=== PATIENT | male | born 1980 | race Caucasian/White ===

== ENCOUNTER → 2020-02-17 | Outpatient (CLI) | payer BC | END | disposition home or self-care (01) | LOC: LABWHC1 10:39 | PROVIDERS: ATTEND Family Medicine | DX: R50.9 Fever, unspecified (principal); R06.02 Shortness of breath | CPT/HCPCS: U0003; C9803 ==

== ENCOUNTER 2021-04-12 08:09 | Emergency (ER) | payer OTHER ==
[2021-04-12 08:16] VITALS: RESP 18
[2021-04-12] MEDS ORDERED: methylPREDNISolone SOD SUCCI 125 MG/2 ML VIAL IM STA (09:19)
[2021-04-12] MEDS ORDERED: KETOROLAC 15 MG/ML 1 ML VIAL IM STA (09:19)
--- NOTE | 2021-04-12 09:32 | ED ---
General Adult HPI - General Chief complaint: Extremity Problem,Nontraumatic Stated complaint: swelling Time Seen by Provider: 04/12/21 08:39 Source: patient, RN notes reviewed Mode of arrival: ambulatory Limitations: no limitations - History of Present Illness Initial comments: 40-year-old male with a past medical history of hypertension presents to the emergency room for several complaints. Patient seems to have a main complaint of swelling. States his feet started swelling a few days ago. It then progressed to his hands and arms as well as his lips. No SOB or CHENTE. Patient states this happened before and he needed steroids and it seemed to help. Patient also states he has had one of these migraines on and off for the past few days. States this feels like a normal migraine for him. He also has a sore throat. His daughter had coronavirus last week. No fevers. Patient has no other complaints at this time including shortness of breath, chest pain, abdominal pain, nausea or vomiting, headache, or visual changes. - Related Data Home Medications Medication Instructions Recorded Confirmed amLODIPine [Norvasc] 5 mg PO DAILY 08/18/19 04/12/21 Aspirin/Acetaminophen/Caffeine 2 tab PO DAILY PRN 04/12/21 04/12/21 [Excedrin Migraine Caplet] Previous Rx's Medication Instructions Recorded predniSONE 50 mg PO DAILY #4 tablet 04/12/21 Allergies Allergy/AdvReac Type Severity Reaction Status Date / Time No Known Allergies Allergy Verified 04/12/21 12:15 Review of Systems ROS Statement: Those systems with pertinent positive or pertinent negative responses have been documented in the HPI. ROS Other: All systems not noted in ROS Statement are negative. Past Medical History Past Medical History: Hypertension History of Any Multi-Drug Resistant Organisms: None Reported Past Surgical History: Orthopedic Surgery Additional Past Surgical History / Comment(s): rotator cuff repair Past Psychological History: No Psychological Hx Reported Smoking Status: Current every day smoker Past Alcohol Use History: None Reported Past Drug Use History: Marijuana General Exam - General Exam Comments Initial Comments: Patient does have mild edema of the hands as well as the lips. No swelling of the oropharynx. Uvula nonedematous. Limitations: no limitations General appearance: alert, in no apparent distress Head exam: Present: atraumatic Eye exam: Present: normal appearance, PERRL, EOMI. Absent: scleral icterus, conjunctival injection ENT exam: Present: normal exam, normal oropharynx (Uvula midline, no edema of uvula), mucous membranes moist, normal external ear exam Neck exam: Present: normal inspection, full ROM. Absent: tenderness Respiratory exam: Present: normal lung sounds bilaterally. Absent: respiratory distress, wheezes Cardiovascular Exam: Present: regular rate, normal rhythm, normal heart sounds GI/Abdominal exam: Present: soft, normal bowel sounds. Absent: distended, tenderness Neurological exam: Present: alert Course Vital Signs 04/12/21 08:10 Temperature 97.0 F L Pulse Rate 68 Respiratory 18 Rate Blood Pressure 142/82 O2 Sat by Pulse 99 Oximetry Medical Decision Making - Medical Decision Making vitals are stable. Patient is well appearing. No respiratory distress. Patient was given Toradol and headache improved, actually resolved. He was given a steroid for his swelling which has helped in the past. He does not take any javier inhibitors. Coronavirus was positive on patient. I discussed risks versus benefits of antibodies. At this time he prefers not to have antibodies given. He is aware he needs to return within 10 days of symptom onset if he would like these and that the earlier is better for efficacy. He will return for any other worsening symptoms. - Lab Data Lab Results 04/12/21 04/12/21 Range/Units 10:05 10:05 Coronavirus (PCR) Detected A (Not Detectd) Group A Strep Rapid Negative (Negative) Disposition Clinical Impression: Headache, COVID Disposition: HOME SELF-CARE Condition: Good Instructions (If sedation given, give patient instructions): Coronavirus Disease 2019 (COVID-19) Additional Instructions: Take vitamins c, d, zinc. Take motrin and tylenol for pain. Please follow-up with your primary care physician in 1 to 2 days. Please return to the Emergency Department if symptoms worsen or do not improve. Prescriptions: predniSONE 50 mg PO DAILY #4 tablet Is patient prescribed a controlled substance at d/c from ED?: No Referrals: Ryland Pineda MD [Primary Care Provider] - 1-2 days Time of Disposition: 12:41
[2021-04-12 12:48] VITALS: BP 161/92; PULSE 69; TEMP 97.8
== END 2021-04-12 12:54 | disposition home or self-care (01) ==
LOC: EC 08:09
DX: U07.1 COVID-19 (principal); I10 Essential (primary) hypertension; F17.200 Nicotine dependence, unspecified, uncomplicated; F12.90 Cannabis use, unspecified, uncomplicated; Z79.82 Long term (current) use of aspirin
CPT/HCPCS: 99284; 96372 ×2; 87081; 87430; 87635; J2930; J1885

== ENCOUNTER → 2021-07-04 | Outpatient (CLI) | payer OTHER ==
--- NOTE | 2021-07-05 03:23 | MR ---
EXAMINATION TYPE: MR thoracic spine wo con DATE OF EXAM: 07/04/2021 COMPARISON: None HISTORY: Mid back pain for 5 weeks due to work related lifting injury. Multiplanar multiecho imaging of the thoracic spine without contrast. T10 and T11 and T12 are not wel l seen on the sagittal images. There is some artifact. The thoracic vertebra have normal alignment. T here is no evidence of compression fracture. There is no thoracic paraspinal mass. I see no bony dest ructive process. There is no evidence of thoracic spinal stenosis. Thoracic spinal cord has normal si gnal pattern. There is no sign of edema. Cervical spine appears intact. There is a posterior mild dis c herniation at C6-7 towards the right side with some neural foraminal impingement. IMPRESSION: C6-7 mild posterior right-sided disc herniation and neural foraminal impingement. No fracture seen. No significant abnormality of the thoracic spine.
== END | disposition home or self-care (01) ==
LOC: RADMRIMAIN 19:33
PROVIDERS: ATTEND Family Medicine
DX: M50.123 Cervical disc disorder at C6-C7 level with radiculopathy (principal)
CPT/HCPCS: 72146

== ENCOUNTER → 2021-10-26 | Outpatient (CLI) | payer OTHER ==
--- NOTE | 2021-10-27 06:07 | MR ---
EXAMINATION TYPE: MR lumbar spine wo con DATE OF EXAM: 10/26/2021 COMPARISON: NONE HISTORY: Low back pain that radiates down right leg, bilateral leg numbness TECHNIQUE: Multiplanar, multisequence imaging of the lumbar spine is performed without IV contrast. FINDINGS: Sagittal images of the lumbar spine show vertebral body height to appear satisfactory. Subt le grade 1 retrolisthesis L5 on S1. Disc desiccation with mild disc space narrowing L5-S1 level. Mild disc space narrowing L1-L2 level. The conus medullaris is normal in position and signal ending infe rior L1 level. The bone marrow signal intensity is within normal limits. Axial images show T12-L1 through the L4-L5 levels to appear within normal limits. Axial images at L5-S1 level shows spondylolisthesis with broad based right paracentral/foraminal disc protrusion mildly effacing anterolateral thecal sac, there is effacement of the lateral recess and t he central right S1 nerve axial image 1 and sagittal image 11. Bilateral neural foramina are patent. Paraspinal muscle bulk is preserved. IMPRESSION: Focal broad-based disc herniation L5-S1 level appears to efface the central right S1 nerv e.
== END | disposition home or self-care (01) ==
LOC: RADMRIMAIN 19:30
PROVIDERS: ATTEND Physical Medicine & Rehabilitation
DX: M51.17 Intervertebral disc disorders with radiculopathy, lumbosacral region (principal)
CPT/HCPCS: 72148

== ENCOUNTER 2022-03-19 14:28 | Emergency (ER) | payer OTHER ==
[2022-03-19 14:38] VITALS: BP 154/91; PULSE 77; RESP 20; TEMP 98.2
[2022-03-19] MEDS ORDERED: FAMOTIDINE 20 MG/2 ML VIAL IV STA (14:53)
[2022-03-19] MEDS ORDERED: diphenhydrAMINE 50 MG/ML 1 ML VIAL IVP STA (14:53)
[2022-03-19] MEDS ORDERED: SODIUM CHLORIDE 0.9% 1,000 ML IV ONE (14:53)
[2022-03-19] MEDS ORDERED: methylPREDNISolone SOD SUCCI 125 MG/2 ML VIAL IV STA (14:53)
--- NOTE | 2022-03-19 15:02 | ED ---
Allergic Reaction HPI - General Chief complaint: Allergic Reaction Stated complaint: Wasp sting to LT eye Time Seen by Provider: 03/19/22 14:37 Source: patient, RN notes reviewed Mode of arrival: ambulatory Limitations: no limitations - History of Present Illness Initial Comments: 41-year-old male presents emergency Department chief complaint ALLERGIC re action. Patient states he was stung in his (over region states that he took some Benadryl around 11 states she's had some swelling. Patient states that swelling is primarily around his eyes, side of his face but denies any difficulty swallowing, breathing no shortness of breath he states he swells quite frequently when he has bee sting. Patient denies any other associated complaints. - Related Data Home Medications Medication Instructions Recorded Confirmed amLODIPine [Norvasc] 5 mg PO DAILY 08/18/19 04/12/21 Aspirin/Acetaminophen/Caffeine 2 tab PO DAILY PRN 04/12/21 04/12/21 [Excedrin Migraine Caplet] Previous Rx's Medication Instructions Recorded predniSONE 50 mg PO DAILY #4 tablet 04/12/21 EPINEPHrine (Auto Inject) [Epipen] 0.3 mg IM ONCE PRN #1 pack 03/19/22 Famotidine [Pepcid] 20 mg PO BID #28 tablet 03/19/22 diphenhydrAMINE [Benadryl] 50 mg PO QID PRN #20 capsule 03/19/22 predniSONE 50 mg PO DAILY #5 tab 03/19/22 Allergies Allergy/AdvReac Type Severity Reaction Status Date / Time No Known Allergies Allergy Verified 03/19/22 14:37 Review of Systems ROS Statement: Those systems with pertinent positive or pertinent negative responses have been documented in the HPI. ROS Other: All systems not noted in ROS Statement are negative. Past Medical History Past Medical History: Hypertension History of Any Multi-Drug Resistant Organisms: None Reported Past Surgical History: Orthopedic Surgery Additional Past Surgical History / Comment(s): rotator cuff repair Past Psychological History: No Psychological Hx Reported Smoking Status: Current every day smoker Past Alcohol Use History: None Reported Past Drug Use History: Marijuana General Exam Limitations: no limitations General appearance: alert, in no apparent distress Head exam: Present: atraumatic, normocephalic, normal inspection Eye exam: Present: normal appearance, PERRL, EOMI, periorbital swelling (Bilateral). Absent: scleral icterus, conjunctival injection ENT exam: Present: normal exam, normal oropharynx, mucous membranes moist Neck exam: Present: normal inspection, full ROM. Absent: tenderness, meningismus, lymphadenopathy Respiratory exam: Present: normal lung sounds bilaterally. Absent: respiratory distress, wheezes, rales, rhonchi, stridor Cardiovascular Exam: Present: regular rate, normal rhythm, normal heart sounds. Absent: systolic murmur, diastolic murmur, rubs, gallop, clicks Course Vital Signs 03/19/22 14:36 Temperature 98.2 F Pulse Rate 77 Respiratory 20 Rate Blood Pressure 154/91 O2 Sat by Pulse 99 Oximetry Medical Decision Making - Medical Decision Making 40 of his eyes, sinus face. Patient symptoms have been present for several hours with no worsening symptoms did have some mild improvement after IV meds. Patient discharged with prednisone, Pepcid, Benadryl he'll be given an EpiPen. Return parameters were discussed.-year-old male presented for bee sting, swelling Disposition Clinical Impression: Allergic reaction to insect sting Disposition: HOME SELF-CARE Condition: Stable Instructions (If sedation given, give patient instructions): Anaphylaxis (ED) Additional Instructions: Please return to the Emergency Department if symptoms worsen or any other concerns. Prescriptions: diphenhydrAMINE [Benadryl] 50 mg PO QID PRN #20 capsule PRN Reason: Allergic Reaction EPINEPHrine (Auto Inject) [Epipen] 0.3 mg IM ONCE PRN #1 pack PRN Reason: Anaphylaxis Famotidine [Pepcid] 20 mg PO BID #28 tablet predniSONE 50 mg PO DAILY #5 tab Is patient prescribed a controlled substance at d/c from ED?: No Referrals: Ryland Pineda MD [Primary Care Provider] - 1-2 days Time of Disposition: 16:43
[2022-03-19] MEDS ORDERED: KETOROLAC 15 MG/ML 1 ML VIAL IVP STA (15:53)
== END 2022-03-19 16:52 | disposition home or self-care (01) ==
LOC: EC 14:28
DX: T63.481A Toxic effect of venom of other arthropod, accidental (unintentional), initial encounter (principal); I10 Essential (primary) hypertension; F17.200 Nicotine dependence, unspecified, uncomplicated
CPT/HCPCS: 99283; 96374; 96375; 96361; J1200; J2930; J1885

== ENCOUNTER → 2022-05-31 | Outpatient (CLI) | payer OTHER, BC ==
[2022-05-31 12:25] LABS: Appearance,Urine Clear (Clear); Bilirubin,Urine Negative (Negative); Blood,Urine Negative (Negative); Color,Urine Yellow; Glucose,Urine (UA) Negative (Negative); Ketones,Urine Negative (Negative); Leukocyte Esterase,Urine Negative (Negative); Nitrite,Urine Negative (Negative); PH, Urine 5.5 (5.0-8.0); Protein,Urine Trace (Negative); Specific Gravity,Urine 1.028 (1.001-1.035); Urobilinogen,Urine <2.0 mg/dL (<2.0)
--- NOTE | 2022-05-31 12:46 | XR ---
EXAMINATION TYPE: XR chest 2V DATE OF EXAM: 05/31/2022 COMPARISON: NONE TECHNIQUE: PA and lateral views submitted. HISTORY: Presurgical testing FINDINGS: The lungs are clear and there is no pneumothorax, pleural effusion, or focal pneumonia. Heart size normal. No overt failure. Arthropathy of the right AC joint. IMPRESSION: 1. No acute process.
[2022-05-31 19:43] LABS: INR 0.86 (0.90-1.11); Prothrombin Time 9.8 sec (9.9-11.9)
[2022-05-31 20:13] LABS: Basophils # (A) 0.08 X 10*3/uL (0.00-0.10); Eosinophils # (A) 0.24 X 10*3/uL (0.04-0.35); HCT 49.1 % (39.6-50.0); HGB 16.8 g/dL (13.0-17.0); Immature Grans, Automated 0.6 %; Lymphocytes # (A) 2.87 X 10*3/uL (0.90-5.00); Lymphocytes % (A) 35.7 %; MCH 30.7 pg (27.0-32.0); MCHC 34.2 g/dL (32.0-37.0); MCV 89.6 fL (80.0-97.0); Mean Platelet Volume 10.7 fL (9.5-12.2); Monocytes # (A) 0.46 X 10*3/uL (0.20-1.00); Monocytes % (A) 5.7 %; NRBC Per 100 WBC 0 /100 WBCS (0.0-0.0); Neutrophils # (A) 4.34 X 10*3/uL (1.80-7.70); Platelet Count 273 X 10*3/uL (140-440); RBC 5.48 X 10*6/uL (4.40-5.60); WBC 8.04 X 10*3/uL (4.50-10.00)
[2022-05-31 21:02] LABS: ALT 22 U/L (10-49); AST 12 U/L (14-35); African American GFR (CKD) 131.7 (60.0-200.0); Albumin 4.3 g/dL (3.8-4.9); Albumin/Globulin Ratio 1.68 (1.60-3.17); Alkaline Phosphatase 68 U/L (41-126); BUN/Creat Ratio 18.49 Ratio (12.00-20.00); Blood Urea Nitrogen 14.2 mg/dL (9.0-27.0); Calcium 9.6 mg/dL (8.7-10.3); Carbon Dioxide 22.1 mmol/L (20.0-27.5); Chloride 102 mmol/L (96-109); Globulin 2.6 g/dL (1.6-3.3); Glucose 149 mg/dL (70-110); Non-African American GFR(CKD) 113.6 (60.0-200.0); Potassium 4.3 mmol/L (3.5-5.5); Sodium 138 mmol/L (135-145); Total Bilirubin <0.15 mg/dL (0.30-1.20); Total Protein 6.8 g/dL (6.2-8.2)
== END | disposition home or self-care (01) ==
LOC: RADXRMAIN 11:04
PROVIDERS: ATTEND Specialist
DX: Z01.818 Encounter for other preprocedural examination (principal); M51.26 Other intervertebral disc displacement, lumbar region
CPT/HCPCS: 71046; 80053; 81003; 83036; 85025; 85610

== ENCOUNTER → 2022-09-26 | Outpatient (CLI) | payer BC ==
--- NOTE | 2022-09-26 15:49 | MR ---
EXAMINATION TYPE: MR brain wo/w con DATE OF EXAM: 09/26/2022 COMPARISON: None HISTORY: Blurry vision with spots TECHNIQUE: Multiplanar, multisequence images of the brain and brainstem is performed without and with IV contras t, utilizing 15 mL intravenous Gadavist . FINDINGS: Diffusion weighted images demonstrate no evidence of a recent infarct or other diffusion ab normality. There is no extra-axial fluid collection. A few nonenhancing periventricular and subcorti donn white matter hyperintense foci identified. The ventricular system and cisternal spaces are normal in size and appearance. The brain volume is age appropriate. Midline structures demonstrate normal morphology. The craniocervical junction appears within normal limits. Post contrast images demonstrate no abnormal enhancement. The dural venous sinuses appear pa tent. The visualized sinuses are clear and the globes are intact. IMPRESSION: 1. No evidence for acute/subacute ischemia or enhancing intracranial mass. Next and 2. Few nonspecific white matter changes, likely related to small vessel ischemic disease. Demyelinati ng process is not entirely excluded however there is no enhancement.
== END | disposition home or self-care (01) ==
LOC: RADMRIMAIN 14:08
PROVIDERS: ATTEND Physician Assistant
DX: H53.9 Unspecified visual disturbance (principal); R90.82 White matter disease, unspecified
CPT/HCPCS: 70553; A9585

== ENCOUNTER → 2022-11-08 | Outpatient (CLI) | payer BC ==
--- NOTE | 2022-11-08 15:53 | US ---
EXAMINATION TYPE: US carotid duplex BILAT DATE OF EXAM: 11/08/2022 COMPARISON: NONE CLINICAL INDICATION: Male, 41 years old with history of H53.9 VISUAL CHANGES; Visual changes. TECHNIQUE: Carotid duplex ultrasound examination. Indirect Doppler criteria was utilized. FINDINGS: EXAM MEASUREMENTS: RIGHT: Peak Systolic Velocity (PSV) cm/sec ----- Right CCA: 58 ----- Right ICA: 72.5 ----- Right ECA: 194.8 ICA/CCA ratio: 1.3 RIGHT: End Diastole cm/sec ----- Right CCA: 11.1 ----- Right ICA: 17.6 ----- Right ECA: 10.9 LEFT: Peak Systolic Velocity (PSV) cm/sec ----- Left CCA: 125.2 ----- Left ICA: 88.1 ----- Left ECA: 82.2 ICA/CCA ratio: 0.7 LEFT: End Diastole cm/sec ----- Left CCA: 27.6 ----- Left ICA: 20.7 ----- Left ECA: 0 VERTEBRALS (direction of flow): Right Vertebral: Antegrade Left Vertebral: Antegrade Rhythm: Normal INSOLE STIFFENER NOTES: No significant stenosis seen There is some loss of the elevation within the left common carotid artery. There is elevation of the right external carotid artery velocity suggesting underlying stenosis. Internal carotid artery veloci ties however remain normal. Some atheromatous plaquing and intimal thickening is present IMPRESSION: Moderate atheromatous plaquing without significant flow-limiting stenosis to the internal carotid art eries Criteria for Assigning % of Stenosis / Diameter reduction (Estimation based on the indirect measurements of the internal carotid artery velocities (ICA PSV). 1. Normal (no stenosis)=ICA PSV < 125 cm/s: ratio < 2.0: ICA EDV<40 cm/s. 2. Less than 50% stenosis=ICA PSV < 125 cm/s: ratio < 2.0: ICA EDV<40 cm/s. 3. 50 to 69% stenosis=ICA PSV of 125 to 230 cm/s: ration 2.0 ? 4.0: ICA EDV 40-100 cm/s. 4. Greater than 70% stenosis to near occlusion= ICA PSV > 230 cm/s: ratio > 4.0: ICA EDV > 100 cm/s. 5. Near occlusion= ICA PSV velocities may be low or undetectable: variable ratio and ICA EDV. 6. Total occlusion=unable to detect flow.
== END | disposition home or self-care (01) ==
LOC: RADUSWWP 10:45
PROVIDERS: ATTEND Pediatrics
DX: I65.23 Occlusion and stenosis of bilateral carotid arteries (principal); H53.9 Unspecified visual disturbance
CPT/HCPCS: 93880

== ENCOUNTER 2023-02-11 15:06 | Emergency (ER) | payer BC ==
[2023-02-11] MEDS ORDERED: LIDOCAINE 1% INJ 10MG/ML (20 ML MDV) SQ ONE (17:00)
--- NOTE | 2023-02-11 17:03 | ED ---
General Adult HPI - General Chief complaint: Extremity Injury, Upper Stated complaint: Right finger infection Time Seen by Provider: 02/11/23 16:38 Source: patient, RN notes reviewed Mode of arrival: ambulatory Limitations: no limitations - History of Present Illness Initial comments: 42-year-old male presents to the emergency department chief complaint of right 4th finger swelling x 2 days. He states that is next to his fingernail and has not had any drainage. He admits to chills. Denies any significant past medical history. Denies any medication allergies. - Related Data Home Medications Medication Instructions Recorded Confirmed amLODIPine [Norvasc] 5 mg PO DAILY 08/18/19 04/12/21 Aspirin/Acetaminophen/Caffeine 2 tab PO DAILY PRN 04/12/21 04/12/21 [Excedrin Migraine Caplet] Previous Rx's Medication Instructions Recorded predniSONE 50 mg PO DAILY #4 tablet 04/12/21 EPINEPHrine (Auto Inject) [Epipen] 0.3 mg IM ONCE PRN #1 pack 03/19/22 Famotidine [Pepcid] 20 mg PO BID #28 tablet 03/19/22 diphenhydrAMINE [Benadryl] 50 mg PO QID PRN #20 capsule 03/19/22 predniSONE 50 mg PO DAILY #5 tab 03/19/22 Amoxic-Pot Clav 875-125Mg 1 tab PO Q12HR #14 tab 02/11/23 [Augmentin 875-125] Allergies Allergy/AdvReac Type Severity Reaction Status Date / Time No Known Allergies Allergy Verified 02/11/23 15:11 Review of Systems ROS Statement: Those systems with pertinent positive or pertinent negative responses have been documented in the HPI. ROS Other: All systems not noted in ROS Statement are negative. Past Medical History Past Medical History: Diabetes Mellitus, Hypertension History of Any Multi-Drug Resistant Organisms: None Reported Past Surgical History: Orthopedic Surgery Additional Past Surgical History / Comment(s): rotator cuff repair Past Psychological History: No Psychological Hx Reported Smoking Status: Current every day smoker Past Alcohol Use History: None Reported Past Drug Use History: Marijuana General Exam Limitations: no limitations General appearance: alert, in no apparent distress Head exam: Present: atraumatic, normocephalic, normal inspection Eye exam: Present: normal appearance, PERRL, EOMI. Absent: scleral icterus, conjunctival injection, periorbital swelling ENT exam: Present: normal exam, mucous membranes moist Neck exam: Present: normal inspection. Absent: tenderness, meningismus, lymphadenopathy Respiratory exam: Present: normal lung sounds bilaterally. Absent: respiratory distress, wheezes, rales, rhonchi, stridor Cardiovascular Exam: Present: regular rate, normal rhythm, normal heart sounds. Absent: systolic murmur, diastolic murmur, rubs, gallop, clicks GI/Abdominal exam: Present: soft, normal bowel sounds. Absent: distended, tenderness, guarding, rebound, rigid Extremities exam: Present: full ROM, normal capillary refill, other (radial pulses 2+, paronychia to right 4th digit) Neurological exam: Present: alert, oriented X3 Psychiatric exam: Present: normal affect, normal mood Skin exam: Present: warm, dry, intact, other (paronychia to right 4th finger) Course Vital Signs 02/11/23 02/11/23 15:09 18:19 Temperature 98.3 F 100 F H Pulse Rate 92 87 Respiratory 20 18 Rate Blood Pressure 162/93 144/87 O2 Sat by Pulse 99 97 Oximetry Medical Decision Making - Medical Decision Making Was pt. sent in by a medical professional or institution (, PA, [employer], urgent care, hospital, or [facility]...) When possible be specific @ -No Did you speak to anyone other than the patient for history (EMS, parent, family, police, friend...)? What history was obtained from this source @ -No Did you review nursing and triage notes (agree or disagree)? Why? @ -I reviewed and agree with nursing and triage notes Were old charts reviewed (outside hosp., previous admission, EMS record, old EK G, old radiological studies, urgent care reports/EKG's, [facility] records)? Report findings @ -No old charts were reviewed Differential Diagnosis (chest pain, altered mental status, abdominal pain women, abdominal pain men, vaginal bleeding, weakness, fever, dyspnea, syncope, headache, dizziness, GI bleed, back pain, seizure, CVA, palpatations, mental health, musculoskeletal)? @ -felon, paronychia, cellulitis, this list is not all inclusive EKG interpreted by me (3pts min.). @ -none X-rays interpreted by me (1pt min.). @ -None done CT interpreted by me (1pt min.). @ -None done U/S interpreted by me (1pt. min.). @ -None done What testing was considered but not performed or refused? (CT, X-rays, U/S, labs)? Why? @ -None What meds were considered but not given or refused? Why? @ -None Did you discuss the management of the patient with other professionals (professionals i.e. Dr., PA, [employer], lab, RT, psych nurse, renal social worker, assembly mechanic, teacher, court registry officer, director case management)? Give summary @ -No Was smoking cessation discussed for >3mins.? @ -No Was critical care preformed (if so, how long)? @ -No Were there social determinants of health that impacted care today? How? (Homelessness, low income, unemployed, alcoholism, drug addiction, transportation, low edu. Level, literacy, decrease access to med. care, snf, rehab)? @ -No Was there de-escalation of care discussed even if they declined (Discuss DNR or withdrawal of care, Hospice)? DNR status @ -No What co-morbidities impacted this encounter? (DM, HTN, Smoking, COPD, CAD, Cancer, CVA, ARF, Chemo, Hep., AIDS, mental health diagnosis, sleep apnea, morbid obesity)? @ -None Was patient admitted / discharged? Hospital course, mention meds given and route, prescriptions, significant lab abnormalities, going to OR and other pertinent info. @ -discharged. Patient presented to the emergency department for chief complaint of right 4th finger swelling near his fingernail. On exam, this is consistent with a paronychia, drainage was preformed and wound culture was obtained. patient started on augmentin. Patient stable at time of discharge. Case discussed with my attending, Dr. Martines Undiagnosed new problem with uncertain prognosis? @ -No Drug Therapy requiring intensive monitoring for toxicity (Heparin, Nitro, Insulin, Cardizem)? @ -No Were any procedures done? @ -I&D Diagnosis/symptom? @ -paronychia Acute, or Chronic, or Acute on Chronic? @ -acute Uncomplicated (without systemic symptoms) or Complicated (systemic symptoms)? @ -complicated Side effects of treatment? @ -No Exacerbation, Progression, or Severe Exacerbation? @ -No Poses a threat to life or bodily function? How? (Chest pain, [place], [place], pneumonia, PE, COPD, DKA, ARF, appy, cholecystitis, CVA, Diverticulitis, Homicidal, Suicidal, threat to staff... and all critical care pts) @ -No Disposition Clinical Impression: Paronychia Disposition: HOME SELF-CARE Condition: Stable Instructions (If sedation given, give patient instructions): Paronychia (ED) Additional Instructions: Please follow up with your primary care provider as scheduled tomorrow. Return to the emergency department for new or worsening symptoms. Prescriptions: Amoxic-Pot Clav 875-125Mg [Augmentin 875-125] 1 tab PO Q12HR #14 tab Is patient prescribed a controlled substance at d/c from ED?: No Referrals: Ryland Pineda MD [Primary Care Provider] - 1-2 days
[2023-02-11] MEDS ORDERED: AMOXIC-POT CLAV 875-125MG 1 EACH TAB PO STA (17:33)
[2023-02-11 18:25] VITALS: BP 144/87; PULSE 87; RESP 18; TEMP 100
== END 2023-02-11 18:25 | disposition home or self-care (01) ==
LOC: EC 15:06
DX: L03.011 Cellulitis of right finger (principal); E11.9 Type 2 diabetes mellitus without complications; I10 Essential (primary) hypertension; F17.200 Nicotine dependence, unspecified, uncomplicated; F12.90 Cannabis use, unspecified, uncomplicated; Z79.82 Long term (current) use of aspirin; Z79.899 Other long term (current) drug therapy
CPT/HCPCS: 87070; 87205; 99283; J2001

== ENCOUNTER → 2023-04-09 | Outpatient (CLI) | payer BC ==
[2023-04-09 18:38] LABS: ALT 28 U/L (10-49); AST 13 U/L (14-35); Albumin 4.4 g/dL (3.8-4.9); Albumin/Globulin Ratio 1.52 Ratio (1.60-3.17); Alkaline Phosphatase 104 U/L (41-126); BUN/Creat Ratio 16.75 Ratio (12.00-20.00); Blood Urea Nitrogen 13.4 mg/dL (9.0-27.0); Calcium 9.9 mg/dL (8.7-10.3); Carbon Dioxide 25.5 mmol/L (21.6-31.8); Chloride 101 mmol/L (96-109); Chol/HDL Ratio 4.49 Ratio; Globulin 2.9 g/dL (1.6-3.3); Glucose 136 mg/dL (70-110); LDL Cholesterol,Calculated 62.6 mg/dL (0.0-131.0); Potassium 4.5 mmol/L (3.5-5.5); Sodium 138 mmol/L (135-145); Total Bilirubin 0.3 mg/dL (0.3-1.2); Total Protein 7.3 g/dL (6.2-8.2)
== END | disposition home or self-care (01) ==
LOC: LABWHC1 09:35
PROVIDERS: ATTEND Pediatrics
DX: E78.5 Hyperlipidemia, unspecified (principal)
CPT/HCPCS: 36415; 80053; 80061; 83036

== ENCOUNTER → 2023-07-13 | Outpatient (CLI) | payer BC, OTHER ==
--- NOTE | 2023-07-15 09:40 | MR ---
EXAMINATION TYPE: MR lumbar spine wo/w con DATE OF EXAM: 07/13/2023 9:18 PM CLINICAL INDICATION:Male, 42 years old with history of M51.26 LUMBAR DISC DISPLACME; PHH, Numbness an d pain in feet. Hx surgery. COMPARISON: None TECHNIQUE: Multi planar, multi sequence imaging was performed utilizing: T1-weighted, T2-weighted, a nd turbo inversion recovery imaging of the lumbar spine. IV Contrast: 15 cc Gadavist. (None if empty) FINDINGS: Alignment: The lumbar vertebral bodies have preserved heights and alignment. Cord: The conus medullaris and the distal spinal cord appear unremarkable with regards to their signa l intensity and morphology. No abnormal postcontrast enhancement. Bones/Discs: Mild degeneration changes throughout the spine with osteophyte formation and facet joint arthropathy. Modic endplate changes at this inferior endplate of L5. Mild bony edema present Finding s worse at L5-S1. Intervertebral disc signal is maintained. No abnormal postcontrast enhancement. T12-L1: No evidence of significant spinal canal stenosis or neural foraminal stenosis. L1-L2: No evidence of significant spinal canal stenosis or neural foraminal stenosis. L2-L3: No evidence of significant spinal canal stenosis or neural foraminal stenosis. L3-L4: No evidence of significant spinal canal stenosis or neural foraminal stenosis. L4-L5: No evidence of significant spinal canal stenosis. Facet joint arthropathy mild to moderate agus ateral neural foraminal stenosis. L5-S1: Eccentric right osteophyte and facet joint arthropathy with moderate to severe right neural fo raminal stenosis osteophyte impresses slightly on the right exiting nerve at this level. Spinal canal is patent. There is postsurgical change the right facet best appreciated on axial imaging. No significant spinal canal or neural foraminal stenosis in the remainder of the visualized levels. Other findings: None. IMPRESSION: 1. Eccentric right osteophyte and facet joint arthropathy with moderate to severe right neural yan inal stenosis. Spinal canal is patent. 2. Multilevel disc degeneration with associated osteoarthritic changes worse at L5-S1 with some reac tive bony edema of the adjoining endplates. 3. No evidence for significant spinal canal stenosis.
== END | disposition home or self-care (01) ==
LOC: RADMRIMAIN 20:15
PROVIDERS: ATTEND Specialist
DX: M47.816 Spondylosis without myelopathy or radiculopathy, lumbar region (principal); M48.061 Spinal stenosis, lumbar region without neurogenic claudication; M99.73 Connective tissue and disc stenosis of intervertebral foramina of lumbar region; M25.78 Osteophyte, vertebrae; M51.37 Other intervertebral disc degeneration, lumbosacral region; M51.26 Other intervertebral disc displacement, lumbar region; M54.16 Radiculopathy, lumbar region; M54.41 Lumbago with sciatica, right side; M62.830 Muscle spasm of back; Z98.890 Other specified postprocedural states
CPT/HCPCS: 72158; A9585

== ENCOUNTER 2024-12-10 12:19 | Emergency (ER) | payer BC, OTHER ==
[2024-12-10 12:23] VITALS: BP 160/81; PULSE 76; RESP 18; TEMP 97.9
--- NOTE | 2024-12-10 13:23 | XR ---
EXAMINATION TYPE: XR finger RT DATE OF EXAM: 12/10/2024 1:01 PM COMPARISON: 01/23/2012 CLINICAL INDICATION: Male, 44 years old with history of pain 1st digit, pain TECHNIQUE: XR finger RT 3 views were obtained. FINDINGS: Soft tissue sign first digit. Normal alignment of the visualized joints. No acute osseous pathology is identified. No evidence of soft tissue swelling. No significant degeneration. IMPRESSION: Soft tissue swelling without evidence of fracture of the first digit. [facility], , 12/10/2024 1:21 PM
--- NOTE | 2024-12-10 13:36 | ED ---
Upper Extremity HPI - General Chief Complaint: Extremity Injury, Upper Stated Complaint: R hand injury Time Seen by Provider: 12/10/24 12:25 Source: patient, RN notes reviewed Mode of arrival: ambulatory Limitations: no limitations - History of Present Illness Initial Comments: 44-year-old male presents emergency department complaint of right thumb pain. Patient states that he injured it 3 weeks ago states that he keeps it in and having worsening pain. Patient states he is concerned that he may have fractured it. Denies any paresthesias he is right-hand dominant. - Related Data Home Medications Medication Instructions Recorded Confirmed amLODIPine [Norvasc] 5 mg PO DAILY 08/18/19 04/12/21 Aspirin/Acetaminophen/Caffeine 2 tab PO DAILY PRN 04/12/21 04/12/21 [Excedrin Migraine Caplet] Previous Rx's Medication Instructions Recorded predniSONE 50 mg PO DAILY #4 tablet 04/12/21 EPINEPHrine (Auto Inject) [Epipen] 0.3 mg IM ONCE PRN #1 pack 03/19/22 Famotidine [Pepcid] 20 mg PO BID #28 tablet 03/19/22 diphenhydrAMINE [Benadryl] 50 mg PO QID PRN #20 capsule 03/19/22 predniSONE 50 mg PO DAILY #5 tab 03/19/22 Amoxic-Pot Clav 875-125Mg 1 tab PO Q12HR #14 tab 02/11/23 [Augmentin 875-125] Cephalexin [Keflex] 500 mg PO Q6HR #40 cap 02/17/23 Sulfamethox-Tmp 800-160Mg [Bactrim 1 each PO Q12HR #20 tab 02/17/23 Ds] Allergies Allergy/AdvReac Type Severity Reaction Status Date / Time No Known Allergies Allergy Verified 12/10/24 12:23 Review of Systems ROS Statement: Those systems with pertinent positive or pertinent negative responses have been documented in the HPI. ROS Other: All systems not noted in ROS Statement are negative. Past Medical History Past Medical History: Diabetes Mellitus, Hypertension History of Any Multi-Drug Resistant Organisms: None Reported Past Surgical History: Orthopedic Surgery Additional Past Surgical History / Comment(s): rotator cuff repair Past Psychological History: No Psychological Hx Reported Smoking Status: Current every day smoker Past Alcohol Use History: None Reported Past Drug Use History: Marijuana General Exam Limitations: no limitations General appearance: alert, in no apparent distress Head exam: Present: atraumatic, normocephalic, normal inspection Respiratory exam: Present: normal lung sounds bilaterally. Absent: respiratory distress, wheezes, rales, rhonchi, stridor Cardiovascular Exam: Present: regular rate, normal rhythm, normal heart sounds. Absent: systolic murmur, diastolic murmur, rubs, gallop, clicks Extremities exam: Present: other (Right hand first digit over the thumb mass but there is tenderness at the MCP region and interphalangeal joint there is no significant ecchymosis or deformity) Course Vital Signs 12/10/24 12:20 Temperature 97.9 F Pulse Rate 76 Respiratory 18 Rate Blood Pressure 160/81 O2 Sat by Pulse 99 Oximetry Medical Decision Making - Medical Decision Making Was pt. sent in by a medical professional or institution (, [facility], ROOMING HOUSE INSPECTOR, urgent care, hospital, or [facility]...) When possible be specific @ -No Did you speak to anyone other than the patient for history (EMS, parent, family, police, friend...)? What history was obtained from this source @ -No Did you review nursing and triage notes (agree or disagree)? Why? @ -I reviewed and agree with nursing and triage notes Were old charts reviewed (outside hosp., previous admission, EMS record, old EKG, old radiological studies, urgent care reports/EKG's, [facility] records)? Report findings @ -No old charts were reviewed Differential Diagnosis (chest pain, altered mental status, abdominal pain women, abdominal pain men, vaginal bleeding, weakness, fever, dyspnea, syncope, headache, dizziness, GI bleed, back pain, seizure, CVA, palpatations, mental health, musculoskeletal)? @ -Thumb fracture thumb sprain EKG interpreted by me (3pts min.). @ -None X-rays interpreted by me (1pt min.). @ -X-ray right thumb no acute fracture CT interpreted by me (1pt min.). @ -None done U/S interpreted by me (1pt. min.). @ -None done What testing was considered but not performed or refused? (CT, X-rays, U/S, labs)? Why? @ -None What meds were considered but not given or refused? Why? @ -None Did you discuss the management of the patient with other professionals (professionals i.e. , PA, ROOMING HOUSE INSPECTOR, lab, RT, psych nurse, family welfare social work professor, intelligence agent, teacher, operations officer, assistant case manager)? Give summary @ -No Was smoking cessation discussed for >3mins.? @ -No Was critical care preformed (if so, how long)? @ -No Were there social determinants of health that impacted care today? How? (Homelessness, low income, unemployed, alcoholism, drug addiction, transportation, low edu. Level, literacy, decrease access to med. care, correction, rehab)? @ -No Was there de-escalation of care discussed even if they declined (Discuss DNR or withdrawal of care, Hospice)? DNR status @ -No What co-morbidities impacted this encounter? (DM, HTN, Smoking, COPD, CAD, Cancer, CVA, ARF, Chemo, Hep., AIDS, mental health diagnosis, sleep apnea, morbid obesity)? @ -None Was patient admitted / discharged? Hospital course, mention meds given and route, prescriptions, significant lab abnormalities, going to OR and other pertinent info. @ -discharge patient has right thumb sprain. Patient was discharged in stable condition with thumb spica splint patient will follow-up with orthopedics as needed return parameters anayeli. Undiagnosed new problem with uncertain prognosis? @ -No Drug Therapy requiring intensive monitoring for toxicity (Heparin, Nitro, Insulin, Cardizem)? @ -No Were any procedures done? @ -No Diagnosis/symptom? @ -Right thumb sprain Acute, or Chronic, or Acute on Chronic? @ -Acute Uncomplicated (without systemic symptoms) or Complicated (systemic symptoms)? @ -Uncomplicated Side effects of treatment? @ -No Exacerbation, Progression, or Severe Exacerbation? @ -No Poses a threat to life or bodily function? How? (Chest pain, [place], [place], pneumonia, PE, COPD, DKA, ARF, appy, cholecystitis, CVA, Diverticulitis, Homicidal, Suicidal, threat to staff... and all critical care pts) @ -No Disposition Clinical Impression: Sprain of right thumb Disposition: HOME SELF-CARE Condition: Stable Instructions (If sedation given, give patient instructions): Finger Sprain (ED) Additional Instructions: Please return to the Emergency Department if symptoms worsen or any other concerns. Is patient prescribed a controlled substance at d/c from ED?: No Referrals: Ryland Pineda MD [Primary Care Provider] - 1-2 days Sophia Womack [Doctor of Osteopathic Medicine] - 1-2 days Time of Disposition: 13:35
== END 2024-12-10 14:14 | disposition home or self-care (01) ==
LOC: EC 12:19
DX: S63.601A Unspecified sprain of right thumb, initial encounter (principal); F17.200 Nicotine dependence, unspecified, uncomplicated; X58.XXXA Exposure to other specified factors, initial encounter
CPT/HCPCS: 29125; 99283